=== PATIENT | male | born 1950 | race Caucasian/White ===

== ENCOUNTER → 2016-09-30 | Outpatient (CLI) | payer OTHER, BC | LOC: HYPER 06:54 | DX: L89.523 Pressure ulcer of left ankle, stage 3 (principal); L89.513 Pressure ulcer of right ankle, stage 3; S91.302D Unspecified open wound, left foot, subsequent encounter; G35 Multiple sclerosis; X58.XXXD Exposure to other specified factors, subsequent encounter ==